=== PATIENT | male | born 1955 | race Caucasian/White ===

== ENCOUNTER 2024-01-25 18:31 | Emergency (ER) | payer OTHER ==
[2024-01-25] MEDS ORDERED: diphenhydrAMINE 50 MG/ML VIAL ONE (18:40)
[2024-01-25] MEDS ORDERED: methylPREDNISolone Sod Succ/PF 125 MG/2 ML VIAL ONE (18:40)
[2024-01-25] MEDS ORDERED: Famotidine/PF 20 mg/2ml Vial ONE (18:40)
[2024-01-25] MEDS ORDERED: Ondansetron PF 4 MG/2 ML Vial ONE (18:47)
== END 2024-01-25 21:24 | disposition home or self-care (01) ==
LOC: CSHERS 18:31
DX: T78.40XA Allergy, unspecified, initial encounter (principal); I10 Essential (primary) hypertension
CPT/HCPCS: J1200; J2405; J2919; J3490; 96374; 96375